=== PATIENT | female | born 1965 | race Caucasian/White ===

== ENCOUNTER 2018-06-30 17:58 | Emergency (ER) | payer SELFPAY ==
[2018-06-30] MEDS ORDERED: TRAZ100T31 PO (18:23)
[2018-06-30] MEDS ORDERED: CITA-145 PO (18:23)
[2018-06-30] MEDS ORDERED: DIPHTH/TETANUS/ACEL. PERTUSSIS IM ONLY ONE (18:30)
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
[2018-06-30 19:09] LABS: PLATELET COUNT, AUTOMATED 221 K/uL (150-450)
--- NOTE | 2018-06-30 19:59 | BHS - Psychiatric Evaluation ---
ER - Title 25 MHE Evaluation Title 25 Evaluation Patient Detained By: Law Enforcement Referral Source: Dispatch Date Patient Detained: Jun 30, 2018 Time Patient Detained: 18:41 Date Fpc Expires: Jul 05, 2018 Time Fpc Expires: 18:41 Legal Status: Police Hold: Yes Legal Status: Residence: [facility] Resident Assessment Data Provided By: Patient HPI/ROS: Please refer to history of present illness from ER note. Admit due to SI or Attempt: Yes Suicide Plan: Has Plan with Access Current Suicide Plan Cut Wrists Alcohol or Drugs Involved: Yes Current Intoxication Info: Blood alcohol 296 Is Patient Info Reliable: Yes Is Collateral Info Reliable: Yes (ROBERT BARTLETT) Mental Status Exam General Appearance: Unkept, Tearful Speech: Delayed, Slurred Mood: Dysthmic/Depressed Affect: Flat Thought Process: Goal Directed, Flight of Ideas Thought Content: Suicidal Ideation, Obsessions Sensorium: Clear Cognition: Alert & Oriented-Person Memory: Recent, Remote Insight Judgment: Fair Sleep: Normal Hallucinations: Denies Delusions: Denies (ROBERT BARTLETT) Current Risk & History Current Dangerous Risk Assessm: Current Suicide Attempt, Self-Injurious Behaviors Past Dangerous Risk Assessm: Self-Injurious Behaviors Previous Suicide Attempt: Past - High Lethality Previous Psychiatric Illness: Yes Previous Diagnosis/Treatment: Depression, suicidal ideation Previous Psychiatric Treatment: No (ROBERT BARTLETT) Risk Assessment & Disposition Evaluated Risk Assessment: Risk due to suicide attempt with cutting and the current intoxication. (ISIDRO RICHARDS MD) Impression: Primary Impression: Suicidal ideation Additional Impressions: Alcohol abuse Superficial wound Depression Meets Mental Illness Req.: Yes Meets Dangerousness Req.: Yes Emergency Fpc to be: Upheld Date of Decision: Jun 30, 2018 Time of Decision: 18:41 Patient is Medically Stable at: Yes Disposition: [facility] (ROBERT BARTLETT) Decision Comment: I reviewed this patient with Robert Bartlett and agree with upholding the detainment as noted. (ISIDRO RICHARDS MD) Problem Qualifiers Additional Impressions: Depression Depression Type: major depressive disorder Major depression recurrence: recurrent Active/Remission status: currently active Major depression episode severity: moderate Qualified Codes: F33.1 - Major depressive disorder, recurrent, moderate ROBERT BARTLETT Jun 30, 2018 19:59 ISIDRO RICHARDS MD Jun 30, 2018 20:00
[2018-06-30 20:10] VITALS: BP 139/80
[2018-07-01] MEDS ORDERED: ALB18R INH (15:10)
[2018-07-01] MEDS ORDERED: HYDR-2966 PO (15:10)
[2018-07-01] MEDS ORDERED: TRAZ50TA34 PO (15:10)
[2018-07-01] MEDS ORDERED: ALPR-429 PO (15:10)
[2018-07-01] MEDS ORDERED: FLUT1AER5 INH (15:10)
[2018-07-01] MEDS ORDERED: ALBU2.5V36 INH (15:10)
[2018-07-01] MEDS ORDERED: AMLO-111 PO (15:10)
[2018-07-01] MEDS ORDERED: ASCO-182 PO (15:11)
== END 2018-06-30 20:25 ==
LOC: ER 18:09
DX: R45.851 Suicidal ideations (principal); F33.1 Major depressive disorder, recurrent, moderate; F10.120 Alcohol abuse with intoxication, uncomplicated; Y90.8 Blood alcohol level of 240 mg/100 ml or more; S60.812A Abrasion of left wrist, initial encounter
CPT/HCPCS: 36415; 80305; 80320; 80329; 81001; 81025; 82040; 82247; 82310; 82374; 82435; 82565; 82947; 83735; 84075; 84132; 84155; 84295; 84443; 84450; 84460; 84520; 85025; 90715; 99284

== ENCOUNTER 2018-06-30 20:11 | Inpatient (IN) | payer SELFPAY ==
[~2018-06-30] VITALS: Ht 170.2 cm; Wt 81.6 kg
[~2018-06-30 20:11] MED LIST changes: -ACET-1966 PO; -ALB18R INH; -ALBU2.5V36 INH; -ALPR-429 PO; -AMLO-111 PO; -ASCO-182 PO; -FLUT1AER5 INH; -FOLI-68 PO; -HYDR-2966 PO; -MULT-859 PO; -NEOM1PAC11 TP; -NIC10R INH; -THIA100T2 PO; -TRAZ50TA34 PO
[2018-06-30] MEDS ORDERED: MAG HYD/AL HYD/SIMETH 30ML UDC PO PRN (20:50)
[2018-06-30] MEDS ORDERED: NICOTINE CARTRIDGE 1 EA PO PRN (20:50)
[2018-06-30] MEDS ORDERED: traZODone HCL 50 MG TAB PO SCH (21:30)
[2018-06-30] MEDS ORDERED: DIAZEPAM 10 MG TAB PO ONE (21:30)
[2018-06-30 21:57] VITALS: BP 128/94
[2018-06-30] MEDS: NICOTINE INH SYSTEM 10 MG/INH INH PRN (22:11)
[2018-07-01] MEDS ORDERED: DIAZEPAM 10 MG TAB PO PRN (02:15)
[2018-07-01 03:00] VITALS: BP 145/92
[2018-07-01 07:55] VITALS: BP 144/84
[2018-07-01] MEDS: CITALOPRAM HYDROBROM 20 MG TAB PO SCH (08:07)
[2018-07-01] MEDS: THIAMINE HCL 100 MG TAB PO SCH (08:07)
[2018-07-01] MEDS: FOLIC ACID 1 MG TAB PO SCH (08:07)
[2018-07-01] MEDS: MULTIVITAMINS PO SCH (08:07)
[2018-07-01] MEDS ORDERED: INFLUENZA VIRUS VAC 0.5ML SYR IM ONLY ONE (09:30)
[2018-07-01] MEDS: amLODIPine BESYL(*) 5 MG TAB PO SCH (09:40)
[2018-07-01] MEDS: HYDROCHLOROTHIAZIDE 25 MG TAB PO SCH (10:01)
[2018-07-01] MEDS: ALBUTEROL 8 GM INHALER INH PRN ×3 (10:10→22:11)
[2018-07-01 14:04] VITALS: BP 172/102
[2018-07-01] MEDS ORDERED: ALPR-429 PO (15:10)
[2018-07-01] MEDS ORDERED: FLUT1AER5 INH (15:10)
[2018-07-01] MEDS ORDERED: ALBU2.5V36 INH (15:10)
[2018-07-01] MEDS ORDERED: TRAZ50TA34 PO (15:10)
[2018-07-01] MEDS ORDERED: HYDR-2966 PO (15:10)
[2018-07-01] MEDS ORDERED: AMLO-111 PO (15:10)
[2018-07-01] MEDS ORDERED: ALB18R INH (15:10)
[2018-07-01] MEDS ORDERED: ASCO-182 PO (15:11)
[2018-07-01] MEDS ORDERED: hydrOXYzine PAMOATE 25 MG CAP PO PRN (15:25)
--- NOTE | 2018-07-01 16:26 | EKG ---
FACILITY: [facility] PATIENT NAME: RUBINA WILLIAMSON : [id number] MR: [id number] V: [id number] EXAM DATE: ORDERING PHYSICIAN: ELVIA MADDEN TECHNOLOGIST: VASYL Rice Reason : QT Blood Pressure : / mmHG Vent. Rate : 078 BPM Atrial Rate : 078 BPM P-R Int : 136 ms QRS Dur : 096 ms QT Int : 412 ms P-R-T Axes : 015 043 045 degrees QTc Int : 469 ms Sinus rhythm Nonspecific interventricular conduction delay Poor R wave progression anteriorly Slightly prolonged QTc Abnormal ECG No previous ECGs available Confirmed by MC RICH ([id number] on 07/01/2018 7:59:19 PM Referred By: Confirmed By:MC RICH
[2018-07-01] MEDS ORDERED: busPIRone HCL 5 MG TAB PO PRN (16:35)
[2018-07-01] MEDS: NICOTINE INH SYSTEM 10 MG/INH INH PRN (17:44)
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
[2018-07-01 18:47] VITALS: BP 164/94
[2018-07-01] MEDS: ACETAMINOPHEN 325 MG TAB PO PRN (21:10)
[2018-07-01] MEDS: traZODone HCL 50 MG TAB PO SCH (21:47)
[2018-07-02] MEDS: traZODone HCL 50 MG TAB PO PRN (01:36)
[2018-07-02 06:24] VITALS: BP 113/96
[2018-07-02] MEDS: CITALOPRAM HYDROBROM 20 MG TAB PO SCH (08:09)
[2018-07-02] MEDS: MULTIVITAMINS PO SCH (08:09)
[2018-07-02] MEDS: ACETAMINOPHEN 325 MG TAB PO PRN ×2 (08:09→22:27)
[2018-07-02] MEDS: THIAMINE HCL 100 MG TAB PO SCH (08:09)
[2018-07-02] MEDS: HYDROCHLOROTHIAZIDE 25 MG TAB PO SCH (08:10)
[2018-07-02] MEDS: FOLIC ACID 1 MG TAB PO SCH (08:10)
[2018-07-02] MEDS: amLODIPine BESYL(*) 5 MG TAB PO SCH (08:10)
[2018-07-02 08:12] VITALS: BP 148/100
[2018-07-02] MEDS: ALBUTEROL 8 GM INHALER INH PRN ×3 (08:26→22:26)
--- NOTE | 2018-07-02 16:51 | BHS Progress Note ---
[facility] - Subjective Progress Notes Subjective Pt seen with team in treatment team meeting, with on speaker phone. Pt says her mood is improving, depression at 3/10 today. She has benefitted from psychoeducation regarding substance abuse and depression, and she and are both talking about attending AA meetings after her discharge. She is still overwhelmed with psychosocial stressors-- they are going to have to move back in with her in-laws and live in their basement, has medical problems and can't work, the are financially strapped. She is tolerating withdrawal from alcohol and benzo's well-- has not had significant withdrawal symptoms other than anxiety and cravings yesterday afternoon. Did not sleep well last night-- maybe about 3 hours. Will continue current medications and continue therapies. Pt denies SI today. If pt remains stable tentative discharge on Thursday. Suicidal Ideation: Resolving Homicidal Ideation: None [facility] - Objective Physical Exam Vital Signs Vital Signs 07/02/18 08:12 Temp 97.9 Pulse 110 Resp 18 B/P (MAP) 148/100 (116) Pulse Ox 91 O2 Delivery Room Air Muscle Strength and Tone: WNL Gait and Station: Steady [facility] Medications Reviewed: Side Effects, Benefits of Medication, Risks Allergies Reviewed: Yes Mental Status Exam General Appearance: Casual, Good Eye Contact, Cooperative, Polite, Good Interaction, Tearful Speech: Clear, Spontaneous, Normal Rate, Normal Rhythm, Normal Volume, Normal Tone Mood: Dysthmic/Depressed Affect: Calm, Sad, Tearful Thought Process: Organized, Logical, Goal Directed Thought Content: Suicidal Ideation (resolving); No Homicidal Ideation, No Delusions, No Auditory Halllucinations, No Visual Hallucinations, No Thought Broadcasting, No Ideas of Reference, No Obsessions, No Compulsions, No Other Sensorium: Clear Cognition: Alert & Oriented-Person, Alert & Oriented-Place, Alert & Oriented- Time, Gqufs-Dunxpner-Jwhhsiifk Memory: Immediate, Recent, Remote Intelligence: Average Insight Judgment: Fair [facility] Assessment and Plan [id number] Encounter Date: Jul 02, 2018 [id number] Encounter Time: 08:30 [facility] Plan: Admit to Unit, Necessary Precautions, Individual/Group Therapy, Admin/Titrate Meds, Educate Patient Tobacco Medications: Started Multpiple Antipsychotics Used: No Problems: (1) Alcohol abuse Status: Acute (2) Depression Status: Acute (3) Suicidal ideation Status: Acute (4) Superficial wound Status: Acute ELVIA MADDEN MD Jul 02, 2018 16:51
[2018-07-02 19:24] VITALS: BP 162/96
[2018-07-02] MEDS: traZODone HCL 50 MG TAB PO SCH (22:04)
[2018-07-03] MEDS: traZODone HCL 50 MG TAB PO PRN (01:40)
[2018-07-03 06:12] VITALS: BP 145/85
[2018-07-03] MEDS: ALBUTEROL 8 GM INHALER INH PRN ×3 (08:06→22:05)
[2018-07-03] MEDS: HYDROCHLOROTHIAZIDE 25 MG TAB PO SCH (08:07)
[2018-07-03] MEDS: MULTIVITAMINS PO SCH (08:07)
[2018-07-03] MEDS: NICOTINE INH SYSTEM 10 MG/INH INH PRN (08:07)
[2018-07-03] MEDS: FOLIC ACID 1 MG TAB PO SCH (08:07)
[2018-07-03] MEDS: CITALOPRAM HYDROBROM 20 MG TAB PO SCH (08:08)
[2018-07-03] MEDS: THIAMINE HCL 100 MG TAB PO SCH (08:08)
[2018-07-03] MEDS: amLODIPine BESYL(*) 5 MG TAB PO SCH (08:08)
[2018-07-03 08:09] VITALS: BP 120/88
[2018-07-03] MEDS ORDERED: NEOMYCIN/POLYMYX/BACITR 30 GM TP PRN (09:20)
--- NOTE | 2018-07-03 09:23 | BHS Progress Note ---
BHS - Subjective Progress Notes Subjective "I've got a drinking problem but am going to start going to AA. I think my biggest concern is getting that under control." Denies depression, anxiety or anger, denies history of psychosis or seizures Sleeping 3-4 hours "I have a very hard time sleeping. I am very used to drinking up until I went to bed." Denies urge to drink, withdrawal considered complete Multiple previous suicide attempts, last attempt five years ago, cutting Left wrist with superficial laceration Suicidal Ideation: None Homicidal Ideation: None BHS - Objective Physical Exam Vital Signs Allergies Coded Allergies codeine (Verified Allergy, Unknown, 07/01/18) latex (Verified Allergy, Unknown, 07/01/18) lisinopril (Verified Allergy, Unknown, 07/01/18) Deferred Current Medications Medications (Trade) Dose Ordered Sig/Satish Route PRN Reason Start Time Stop Time Status Last Admin Dose Admin Acetaminophen (Tylenol(*)325 Mg Tab (Or Equiv)) 650 mg Q4H PRN PO HEADACHE 06/30/18 20:50 07/30/18 20:49 07/02/18 22:27 Al Hydrox/Mg Hydrox/Simethicone (Maalox(*) 30 ml Udcup (Or Equiv)) 30 ml Q4H PRN PO DYSPEPSIA 06/30/18 20:50 07/30/18 20:49 Multivitamins (Thera-M Enhanced Tab (Or Equiv)) 1 each QDAY PO 07/01/18 09:00 07/31/18 08:59 07/03/18 08:07 Thiamine HCl (Vitamin B-1(*) 100 Mg Tab (Or Equiv)) 100 mg QDAY PO 07/01/18 09:00 07/31/18 08:59 07/03/18 08:08 Folic Acid (Folic Acid (*) 1 Mg Tab) 1 mg QDAY PO 07/01/18 09:00 07/31/18 08:59 07/03/18 08:07 Nicotine (Nicotrol Inhaler 10 Mg/Inh (Or Equiv)) 10 mg Q2H PRN INH NICOTINE REPLACEMENT 06/30/18 20:50 07/30/18 20:49 07/03/18 08:07 Miscellaneous Information (Nicotrol Cartridge) 1 each PRN PRN PO NICOTINE REPLACEMENT 06/30/18 20:50 07/30/18 20:49 06/30/18 22:11 Trazodone HCl (Desyrel 50 Mg Tab (Or Equiv)) 50 mg QHS PO 06/30/18 21:30 07/01/18 12:57 DC 06/30/18 21:57 Diazepam (Valium(*) 10 Mg Tab (Or Equiv)) 20 mg ONCE ONCE PO 06/30/18 21:30 06/30/18 21:37 DC 06/30/18 21:57 Citalopram Hydrobromide (CeleXA 20 MG TAB (OR EQUIV)) 40 mg QDAY PO 07/01/18 09:00 07/31/18 08:59 07/03/18 08:08 Albuterol Sulfate (Ventolin Hfa 8 Gm Inh (Or Equiv)) 2 PUFFS Q4HR PRN INH SHORTNESS OF BREATH 07/01/18 02:05 07/31/18 02:04 07/03/18 08:06 Diazepam (Valium(*) 10 Mg Tab (Or Equiv)) 20 mg Q1H PRN PO FOLLOW [facility] PROTOCOL 07/01/18 02:15 07/01/18 09:24 DC Hydrochlorothiazide (Hydrochlorothiazide(*) 25 Mg Tab) 25 mg QDAY PO 07/01/18 10:30 07/31/18 10:29 07/03/18 08:07 Amlodipine Besylate (Norvasc(*) 5 Mg Tab (Or Equiv)) 5 mg QDAY PO 07/01/18 09:25 07/31/18 09:24 07/03/18 08:08 Influenza Virus Vaccine Quadrival (Flu Vac ([id number] Formula)) 0.5 ml ONCE ONCE IM ONLY 07/01/18 09:30 07/01/18 09:31 DC 07/01/18 10:03 Trazodone HCl (Desyrel 50 Mg Tab (Or Equiv)) 50 mg QHS PO 07/01/18 21:00 07/03/18 09:09 DC 07/02/18 22:04 Trazodone HCl (Desyrel 50 Mg Tab (Or Equiv)) 50 mg QHS PRN PO MR TIMES ONE 07/01/18 13:00 07/03/18 09:09 DC 07/03/18 01:40 Hydroxyzine Pamoate (Vistaril(*) 25 Mg Cap (Or Equiv)) 50 mg Q6H PRN PO ANXIETY/INSOMNIA 07/01/18 15:25 07/31/18 15:24 UNV Buspirone HCl (Buspar 5 Mg Tab (Or Equiv)) 10 mg Q8H PRN PO ANXIETY 07/01/18 16:35 07/31/18 16:34 07/01/18 17:42 Trazodone HCl (Desyrel 50 Mg Tab (Or Equiv)) 100 mg QHS PO 07/03/18 21:00 08/02/18 20:59 Medications (Trade) Dose Ordered Sig/Satish Route PRN Reason Start Time Stop Time Status Last Admin Dose Admin Acetaminophen (Tylenol(*)325 Mg Tab (Or Equiv)) 650 mg Q4H PRN PO HEADACHE 06/30/18 20:50 07/30/18 20:49 07/02/18 22:27 Albuterol Sulfate (Ventolin Hfa 8 Gm Inh (Or Equiv)) 2 PUFFS Q4HR PRN INH SHORTNESS OF BREATH 07/01/18 02:05 07/31/18 02:04 07/03/18 08:06 Amlodipine Besylate (Norvasc(*) 5 Mg Tab (Or Equiv)) 5 mg QDAY PO 07/01/18 09:25 07/31/18 09:24 07/03/18 08:08 Buspirone HCl (Buspar 5 Mg Tab (Or Equiv)) 10 mg Q8H PRN PO ANXIETY 07/01/18 16:35 07/31/18 16:34 07/01/18 17:42 Citalopram Hydrobromide (CeleXA 20 MG TAB (OR EQUIV)) 40 mg QDAY PO 07/01/18 09:00 07/31/18 08:59 07/03/18 08:08 Diazepam (Valium(*) 10 Mg Tab (Or Equiv)) 20 mg ONCE ONCE PO 06/30/18 21:30 06/30/18 21:37 DC 06/30/18 21:57 Folic Acid (Folic Acid (*) 1 Mg Tab) 1 mg QDAY PO 07/01/18 09:00 07/31/18 08:59 07/03/18 08:07 Hydrochlorothiazide (Hydrochlorothiazide(*) 25 Mg Tab) 25 mg QDAY PO 07/01/18 10:30 07/31/18 10:29 07/03/18 08:07 Influenza Virus Vaccine Quadrival (Flu Vac ([id number] Formula)) 0.5 ml ONCE ONCE IM ONLY 07/01/18 09:30 07/01/18 09:31 DC 07/01/18 10:03 Miscellaneous Information (Nicotrol Cartridge) 1 each PRN PRN PO NICOTINE REPLACEMENT 06/30/18 20:50 07/30/18 20:49 06/30/18 22:11 Multivitamins (Thera-M Enhanced Tab (Or Equiv)) 1 each QDAY PO 07/01/18 09:00 07/31/18 08:59 07/03/18 08:07 Nicotine (Nicotrol Inhaler 10 Mg/Inh (Or Equiv)) 10 mg Q2H PRN INH NICOTINE REPLACEMENT 06/30/18 20:50 07/30/18 20:49 07/03/18 08:07 Thiamine HCl (Vitamin B-1(*) 100 Mg Tab (Or Equiv)) 100 mg QDAY PO 07/01/18 09:00 07/31/18 08:59 07/03/18 08:08 Trazodone HCl (Desyrel 50 Mg Tab (Or Equiv)) 50 mg QHS PRN PO MR TIMES ONE 07/01/18 13:00 07/03/18 09:09 DC 07/03/18 01:40 Muscle Strength and Tone: WNL Gait and Station: Steady [facility] Medications Reviewed: Side Effects, Benefits of Medication, Risks Allergies Reviewed: Yes Mental Status Exam General Appearance: Casual, Good Eye Contact, Cooperative, Polite, Good Interaction, Tearful Speech: Clear, Spontaneous, Normal Rate, Normal Rhythm, Normal Volume, Normal Tone Mood: Dysthmic/Depressed Affect: Calm, Sad, Tearful Thought Process: Organized, Logical, Goal Directed Thought Content: Suicidal Ideation (resolving); No Homicidal Ideation, No Delusions, No Auditory Halllucinations, No Visual Hallucinations, No Thought Broadcasting, No Ideas of Reference, No Obsessions, No Compulsions, No Other Sensorium: Clear Cognition: Alert & Oriented-Person, Alert & Oriented-Place, Alert & Oriented-Time, Bvnzf-Waxznejg-Tdlowxcrt Memory: Immediate, Recent, Remote Intelligence: Average Insight Judgment: Fair [facility] Assessment and Plan [id number] Encounter Date: Jul 03, 2018 [id number] Encounter Time: 09:19 BHS Plan: Admit to Unit, Necessary Precautions, Individual/Group Therapy, Admin/Titrate Meds, Educate Patient Tobacco Medications: Started Multpiple Antipsychotics Used: No Problems: (1) Alcohol use disorder, severe, dependence Status: Chronic (2) Superficial wound Status: Acute (3) Suicidal ideation Status: Resolved Condition Complete wellness and recovery plan Encourage sobriety, AA meetings, account representative to potentially visit today Plan for discharge tomorrow, spouse to arrive to provide transportation AUDREY IVERSON NP Jul 03, 2018 09:23
[2018-07-03 16:33] VITALS: BP 149/86
[2018-07-03] MEDS ORDERED: traZODone HCL 50 MG TAB PO SCH (21:00)
[2018-07-03] MEDS: ACETAMINOPHEN 325 MG TAB PO PRN (22:07)
[2018-07-04] MEDS: ALBUTEROL 8 GM INHALER INH PRN (05:39)
[2018-07-04 06:17] VITALS: BP 136/90
[2018-07-04] MEDS ORDERED: NIC10R INH ×2 (07:48→08:09)
[2018-07-04] MEDS ORDERED: FOLI-68 PO (08:07)
--- NOTE | 2018-07-04 08:07 | BHS Progress Note ---
BHS - Subjective Progress Notes Subjective "I met with a person from AA yesterday. I've got an appointment at [place] tomorrow for mental health care." Denies depression, anxiety or anger, denies history of psychosis or seizures Sleep sufficient last pm "I slept well." Denies urge to drink, withdrawal considered complete Left wrist with superficial laceration, denies urge to cut or harm selr Suicidal Ideation: None Homicidal Ideation: None BHS - Objective Physical Exam Vital Signs Current Medications Medications (Trade) Dose Ordered Sig/Satish Route PRN Reason Start Time Stop Time Status Last Admin Dose Admin Acetaminophen (Tylenol(*)325 Mg Tab (Or Equiv)) 650 mg Q4H PRN PO HEADACHE 06/30/18 20:50 07/30/18 20:49 07/03/18 22:07 Al Hydrox/Mg Hydrox/Simethicone (Maalox(*) 30 ml Udcup (Or Equiv)) 30 ml Q4H PRN PO DYSPEPSIA 06/30/18 20:50 07/30/18 20:49 Multivitamins (Thera-M Enhanced Tab (Or Equiv)) 1 each QDAY PO 07/01/18 09:00 07/31/18 08:59 07/03/18 08:07 Thiamine HCl (Vitamin B-1(*) 100 Mg Tab (Or Equiv)) 100 mg QDAY PO 07/01/18 09:00 07/31/18 08:59 07/03/18 08:08 Folic Acid (Folic Acid (*) 1 Mg Tab) 1 mg QDAY PO 07/01/18 09:00 07/31/18 08:59 07/03/18 08:07 Nicotine (Nicotrol Inhaler 10 Mg/Inh (Or Equiv)) 10 mg Q2H PRN INH NICOTINE REPLACEMENT 06/30/18 20:50 07/30/18 20:49 07/03/18 08:07 Miscellaneous Information (Nicotrol Cartridge) 1 each PRN PRN PO NICOTINE REPLACEMENT 06/30/18 20:50 07/30/18 20:49 06/30/18 22:11 Trazodone HCl (Desyrel 50 Mg Tab (Or Equiv)) 50 mg QHS PO 06/30/18 21:30 07/01/18 12:57 DC 06/30/18 21:57 Diazepam (Valium(*) 10 Mg Tab (Or Equiv)) 20 mg ONCE ONCE PO 06/30/18 21:30 06/30/18 21:37 DC 06/30/18 21:57 Citalopram Hydrobromide (CeleXA 20 MG TAB (OR EQUIV)) 40 mg QDAY PO 07/01/18 09:00 07/31/18 08:59 07/03/18 08:08 Albuterol Sulfate (Ventolin Hfa 8 Gm Inh (Or Equiv)) 2 PUFFS Q4HR PRN INH SHORTNESS OF BREATH 07/01/18 02:05 07/31/18 02:04 07/04/18 05:39 Diazepam (Valium(*) 10 Mg Tab (Or Equiv)) 20 mg Q1H PRN PO FOLLOW [facility] PROTOCOL 07/01/18 02:15 07/01/18 09:24 DC Hydrochlorothiazide (Hydrochlorothiazide(*) 25 Mg Tab) 25 mg QDAY PO 07/01/18 10:30 07/31/18 10:29 07/03/18 08:07 Amlodipine Besylate (Norvasc(*) 5 Mg Tab (Or Equiv)) 5 mg QDAY PO 07/01/18 09:25 07/31/18 09:24 07/03/18 08:08 Influenza Virus Vaccine Quadrival (Flu Vac ([id number] Formula)) 0.5 ml ONCE ONCE IM ONLY 07/01/18 09:30 07/01/18 09:31 DC 07/01/18 10:03 Trazodone HCl (Desyrel 50 Mg Tab (Or Equiv)) 50 mg QHS PO 07/01/18 21:00 07/03/18 09:09 DC 07/02/18 22:04 Trazodone HCl (Desyrel 50 Mg Tab (Or Equiv)) 50 mg QHS PRN PO MR TIMES ONE 07/01/18 13:00 07/03/18 09:09 DC 07/03/18 01:40 Hydroxyzine Pamoate (Vistaril(*) 25 Mg Cap (Or Equiv)) 50 mg Q6H PRN PO ANXIETY/INSOMNIA 07/01/18 15:25 07/31/18 15:24 UNV Buspirone HCl (Buspar 5 Mg Tab (Or Equiv)) 10 mg Q8H PRN PO ANXIETY 07/01/18 16:35 07/31/18 16:34 07/01/18 17:42 Trazodone HCl (Desyrel 50 Mg Tab (Or Equiv)) 100 mg QHS PO 07/03/18 21:00 08/02/18 20:59 07/03/18 22:07 Neomycin/ Polymyxin/ Bacitracin (Triple Antibiotic Oint 30 Gm Tube (Or Equiv)) 30 gm PRN PRN TP INFECTION 07/03/18 09:20 08/02/18 09:19 Allergies Coded Allergies codeine (Verified Allergy, Unknown, 07/01/18) latex (Verified Allergy, Unknown, 07/01/18) lisinopril (Verified Allergy, Unknown, 07/01/18) Vital Signs Date Time Temp Pulse Resp B/P (MAP) Pulse Ox O2 Delivery O2 Flow Rate FiO2 07/04/18 06:17 97.5 91 136/90 (105) 91 Room Air 07/02/18 19:24 16 Muscle Strength and Tone: WNL Gait and Station: Steady [facility] Medications Reviewed: Side Effects, Benefits of Medication, Risks Allergies Reviewed: Yes Mental Status Exam General Appearance: Casual, Good Eye Contact, Cooperative, Polite, Good Interaction, Tearful Speech: Clear, Spontaneous, Normal Rate, Normal Rhythm, Normal Volume, Normal Tone Mood: Dysthmic/Depressed Affect: Calm, Sad, Tearful Thought Process: Organized, Logical, Goal Directed Thought Content: Suicidal Ideation (resolving); No Homicidal Ideation, No Delusions, No Auditory Halllucinations, No Visual Hallucinations, No Thought Broadcasting, No Ideas of Reference, No Obsessions, No Compulsions, No Other Sensorium: Clear Cognition: Alert & Oriented-Person, Alert & Oriented-Place, Alert & Oriented- Time, Cplfk-Wdmcylil-Aqqypyvhc Memory: Immediate, Recent, Remote Intelligence: Average Insight Judgment: Fair [facility] Medications (Trade) Dose Ordered Sig/Satish Route PRN Reason Start Time Stop Time Status Last Admin Dose Admin Acetaminophen (Tylenol(*)325 Mg Tab (Or Equiv)) 650 mg Q4H PRN PO HEADACHE 06/30/18 20:50 07/30/18 20:49 07/03/18 22:07 Albuterol Sulfate (Ventolin Hfa 8 Gm Inh (Or Equiv)) 2 PUFFS Q4HR PRN INH SHORTNESS OF BREATH 07/01/18 02:05 07/31/18 02:04 07/04/18 05:39 Amlodipine Besylate (Norvasc(*) 5 Mg Tab (Or Equiv)) 5 mg QDAY PO 07/01/18 09:25 07/31/18 09:24 07/03/18 08:08 Buspirone HCl (Buspar 5 Mg Tab (Or Equiv)) 10 mg Q8H PRN PO ANXIETY 07/01/18 16:35 07/31/18 16:34 07/01/18 17:42 Citalopram Hydrobromide (CeleXA 20 MG TAB (OR EQUIV)) 40 mg QDAY PO 07/01/18 09:00 07/31/18 08:59 07/03/18 08:08 Diazepam (Valium(*) 10 Mg Tab (Or Equiv)) 20 mg ONCE ONCE PO 06/30/18 21:30 06/30/18 21:37 DC 06/30/18 21:57 Folic Acid (Folic Acid (*) 1 Mg Tab) 1 mg QDAY PO 07/01/18 09:00 07/31/18 08:59 07/03/18 08:07 Hydrochlorothiazide (Hydrochlorothiazide(*) 25 Mg Tab) 25 mg QDAY PO 07/01/18 10:30 07/31/18 10:29 07/03/18 08:07 Influenza Virus Vaccine Quadrival (Flu Vac ([id number] Formula)) 0.5 ml ONCE ONCE IM ONLY 07/01/18 09:30 07/01/18 09:31 DC 07/01/18 10:03 Miscellaneous Information (Nicotrol Cartridge) 1 each PRN PRN PO NICOTINE REPLACEMENT 06/30/18 20:50 07/30/18 20:49 06/30/18 22:11 Multivitamins (Thera-M Enhanced Tab (Or Equiv)) 1 each QDAY PO 07/01/18 09:00 07/31/18 08:59 07/03/18 08:07 Nicotine (Nicotrol Inhaler 10 Mg/Inh (Or Equiv)) 10 mg Q2H PRN INH NICOTINE REPLACEMENT 06/30/18 20:50 07/30/18 20:49 07/03/18 08:07 Thiamine HCl (Vitamin B-1(*) 100 Mg Tab (Or Equiv)) 100 mg QDAY PO 07/01/18 09:00 07/31/18 08:59 07/03/18 08:08 Trazodone HCl (Desyrel 50 Mg Tab (Or Equiv)) 100 mg QHS PO 07/03/18 21:00 08/02/18 20:59 07/03/18 22:07 Allergies Coded Allergies codeine (Verified Allergy, Unknown, 07/01/18) latex (Verified Allergy, Unknown, 07/01/18) lisinopril (Verified Allergy, Unknown, 07/01/18) [facility] Assessment and Plan [id number] Encounter Date: Jul 04, 2018 [id number] Encounter Time: 08:04 [facility] Plan: Admit to Unit, Necessary Precautions, Individual/Group Therapy, Admin/Titrate Meds, Educate Patient Tobacco Medications: Started Multpiple Antipsychotics Used: No Problems: (1) Alcohol use disorder, severe, dependence Status: Chronic (2) Superficial wound Status: Acute (3) Suicidal ideation Status: Resolved Condition Discharge to home Encourage AA and outpatient therapy as scheduled for substance abuse treatment Crisis line # provided, encourage use if needed Return to ER for worsening s/s, SI/HI. AUDREY IVERSON NP Jul 04, 2018 08:07
[2018-07-04] MEDS ORDERED: THIA100T2 PO (08:08)
[2018-07-04] MEDS ORDERED: MULT-859 PO (08:08)
[2018-07-04] MEDS ORDERED: ACET-1966 PO (08:09)
[2018-07-04] MEDS ORDERED: NEOM1PAC11 TP (08:10)
[2018-07-04 08:30] VITALS: BP 164/84
[2018-07-04] MEDS: FOLIC ACID 1 MG TAB PO SCH (08:43)
[2018-07-04] MEDS: HYDROCHLOROTHIAZIDE 25 MG TAB PO SCH (08:43)
[2018-07-04] MEDS: THIAMINE HCL 100 MG TAB PO SCH (08:43)
[2018-07-04] MEDS: CITALOPRAM HYDROBROM 20 MG TAB PO SCH (08:44)
[2018-07-04] MEDS: MULTIVITAMINS PO SCH (08:44)
[2018-07-04] MEDS: amLODIPine BESYL(*) 5 MG TAB PO SCH (08:44)
--- NOTE | 2018-07-05 00:54 | ROMSA DISCHARGE ---
DATE OF ADMISSION: June 30, 2018 DATE OF DISCHARGE: July 04, 2018 ATTENDING PROVIDER Susan Morillo, Psychiatric Mental Health Nurse Practitioner DIAGNOSES PER DSM-V 1. Alcohol use disorder, severe. 2. Alcohol withdrawal, considered complete at time of discharge. 3. Sedative/hypnotic use disorder (benzodiazepines). 4. Substance-induced depressive disorder. 5. Problems related to interpersonal relationship stressors, upcoming move. REASON FOR ADMISSION/BRIEF HISTORY Patient is a 53-year-old female with a history of alcohol and benzodiazepine use disorder as well as a history of depression. She was admitted under an emergency care home which was filed by the police. Apparently, her had gone to [place] for the night to be with his brother, who has since from leukemia. The patient had argued with her two nights before that date, and she had asked him to hide the knives in the house. Later that night, after he left, she began drinking four to five beers and three to four shots of vodka, approximate quantity, and she called her and said, "I found the knives and I'm bleeding out." The called 911. Police came to the home, where she actually had cut on her left wrist. However, when the police showed up, she ran and got a knife and again superficially cut her wrist. The police transported her to the emergency room. She was eventually transferred to the Behavioral Health Unit for further evaluation and treatment. She reports that she also smokes marijuana two to three times per week. She has drunk alcohol on a nearly daily basis, three to five beers, often with several shots of vodka, and prescribed also benzodiazepine for multiple years, which she abuses. She denied any history of any IV drug use. She did report that she has been stable on citalopram for many years as an outpatient. She has also been treated with Valium for many years, but a couple years ago switched to alprazolam. The last time she was seen by an outpatient psychiatric provider was approximately six months ago, when she was given a prescription for alprazolam 5 mg every six hours as needed. She reported that she would go often days without taking it, but some days she would use up to four tablets in a 24- hour period. She has never been on an inpatient psychiatric unit in the past. She states she has never had a prior suicide attempt, but has had previous self- harm behaviors such as cutting on her wrists, which she described as a cry for help. She is currently not under the care of any outpatient psychiatric providers. PHYSICAL EXAMINATION Please see emergency room note for physical exam. Vital signs at time of admission including temperature of 98.3, pulse 78, respiratory rate 16, blood pressure 162/96, pulse oximetry 95% on room air. Vital signs at time of discharge include temperature of 98.3, pulse 96, respiratory rate 18, blood pressure 164/84, pulse oximetry 94% on room air. LABORATORY DATA CBC within normal limits with the exception of elevated MCV 100.8, MCH elevated at 35.2, MPV low at 7.0. Chemistry panel with initial potassium low at 3.4, carbon dioxide low at 14, magnesium low at 1.6, AST slightly elevated at 56. Thyroid stimulating hormone 3.08. Urine screen within normal limits, with many squamous epithelial cells. Toxicology includes serum alcohol initially 296, salicylate and acetaminophen levels less than 10. Urine screen negative for opiates, barbiturates, tricyclics, phencyclidine, amphetamines, benzodiazepines, cocaine, and positive for cannabinoids, which she admits to using. MENTAL STATUS EXAMINATION GENERAL APPEARANCE, BEHAVIOR AND ATTITUDE: Patient is calm, cooperative, with no periods of tearfulness at time of discharge interview. No psychomotor agitation or retardation. No periods of tearfulness. SPEECH: Regular rate, rhythm, volume and tone. MOOD: Euthymic. AFFECT: Minimally constricted and mood-congruent. THOUGHT PROCESSES: Logical and goal-directed; no loose associations or flight of ideas. THOUGHT CONTENT: Free of auditory or visual hallucinations, ideas of reference, thought broadcasting, delusions, obsessions or compulsions. The patient is denying suicidal or homicidal ideation. SENSORIUM: Clear. COGNITION: Alert and oriented to person, place, time and situation. MEMORY: Immediate, recent and remote intact. INTELLIGENCE: Average, based on interview. INSIGHT AND JUDGMENT: Considered intact, as she is agreeable with outpatient mental health followup. CONSULTATIONS None. TREATMENT Patient participated in individual and group therapy. She was continued on her outpatient citalopram 40 mg p.o., which she reports benefit from taking over several years. HOSPITAL COURSE Patient was able to complete her alcohol detoxification with [facility] protocol. Her alcohol withdrawal is considered complete at time of discharge. She has gained insight into the dangerousness with her daily drinking and also abuse of sedative/hypnotics which she has been prescribed in large amounts from an outside provider. Patient reports good response from trazodone 100 mg p.o. at bedtime. She reports her mood as mostly euthymic. She is agreeable to outpatient care. She denies depression, anxiety, or anger. She denies symptoms of melany or psychosis. She denies suicidal or homicidal ideation, denies urge to cut or engage in self-harm behaviors. CONDITION OF PATIENT ON DISCHARGE She is stable, considered a minimal risk to herself or others. DISPOSITION This patient is discharged to home. She is to follow up with outpatient individual counseling with an appointment at [facility] in [place], set for Thursday, July 05, 2018, at 1 p.m. She is to abstain from alcohol abuse, of sedative/hypnotics and all illicit substances. She is encouraged to use the crisis line for worsening symptoms, suicidal or homicidal ideation. She is to return to the emergency room for worsening symptoms or suicidal or homicidal ideation. Discharge medications including acetaminophen 650 mg every four hours as needed for pain; albuterol sulfate, two puffs inhalation every two hours as needed for wheezing; amlodipine 5 mg, one p.o. daily; vitamin C 500 mg, one p.o. daily; citalopram 40 mg, one p.o. daily; fluticasone/salmeterol, one puff inhalation twice a day; folic acid 1 mg, one p.o. daily; hydrochlorothiazide 25 mg, one p.o. daily; multivitamin, one p.o. daily; triple antibiotic ointment as needed topically for left wrist laceration; nicotine inhaler as needed for nicotine replacement. She is to take medications only as prescribed. She is agreeable with followup mental health care with established appointment prior to discharge. Patient is competent and agreeable with the above discharge plan and verbalizes understanding of detailed discharge instructions. HECTOR
--- NOTE | 2018-07-05 14:30 | EKG ---
FACILITY: [facility] [place] PATIENT NAME: RUBINA WILLIAMSON : [id number] MR: [id number] V: [id number] EXAM DATE: ORDERING PHYSICIAN: ELVIA MADDEN TECHNOLOGIST: VASYL Rice Reason : Blood Pressure : / mmHG Vent. Rate : 073 BPM Atrial Rate : 073 BPM P-R Int : 136 ms QRS Dur : 094 ms QT Int : 420 ms P-R-T Axes : 034 067 060 degrees QTc Int : 462 ms Normal sinus rhythm Normal ECG When compared with ECG of 01-JUL-2018 16:08, Previous ECG has undetermined rhythm, needs review Confirmed by ANTONIO VENTURA ([id number]) on 07/06/2018 6:24:45 AM Referred By: Confirmed By:ANTONIO VENTURA
== END 2018-07-04 11:15 | disposition home or self-care (01) | DRG 897 ==
LOC: BHS 20:11
PROVIDERS: ADMIT Psychiatry & Neurology Psychiatry; ATTEND Psychiatry & Neurology Psychiatry
DX: F10.230 Alcohol dependence with withdrawal, uncomplicated (principal); F13.20 Sedative, hypnotic or anxiolytic dependence, uncomplicated; R45.851 Suicidal ideations; F15.90 Other stimulant use, unspecified, uncomplicated; I10 Essential (primary) hypertension; S61.512A Laceration without foreign body of left wrist, initial encounter; J45.909 Unspecified asthma, uncomplicated; Y90.8 Blood alcohol level of 240 mg/100 ml or more; F10.24 Alcohol dependence with alcohol-induced mood disorder; Z23 Encounter for immunization; Z91.5 Personal history of self-harm; Z63.0 Problems in relationship with spouse or partner; Z88.8 Allergy status to other drugs, medicaments and biological substances; Z59.6 Low income; Z59.8 Other problems related to housing and economic circumstances
CPT/HCPCS: 90471; 90674; 93005; 94640; J3535

== ENCOUNTER → 2018-06-30 | Outpatient (CLI) | payer SELFPAY ==
[~2018-06-30] MED LIST: ACET-1966 PO; ALB18R INH; ALBU2.5V36 INH; ALPR-429 PO; AMLO-111 PO; ASCO-182 PO; CITA-145 PO; FLUT1AER5 INH; FOLI-68 PO; HYDR-2966 PO; MULT-859 PO; NEOM1PAC11 TP; NIC10R INH; THIA100T2 PO; TRAZ100T31 PO; TRAZ50TA34 PO
== END ==
LOC: AMB 17:38
PROVIDERS: ATTEND Nurse Practitioner
DX: S61.512A Laceration without foreign body of left wrist, initial encounter (principal); F10.120 Alcohol abuse with intoxication, uncomplicated; T14.91XA Suicide attempt, initial encounter; X78.1XXA Intentional self-harm by knife, initial encounter
CPT/HCPCS: A0425; A0427